=== PATIENT | male | born 1955 | race Caucasian/White ===

== ENCOUNTER 2017-06-07 16:55 | Emergency (ER) | payer BC ==
[2017-06-07 17:11] VITALS: BP 160/109; PULSE 104; O2SAT 97
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
[2017-06-07] MEDS ORDERED: PERCOCET TABLET 5/325MG ONE (17:33)
[2017-06-07] MEDS: PERCOCET TABLET 5/325MG PO STA ×2 (17:34→17:40)
[2017-06-07] MEDS ORDERED: Hydromorphone 1 mg/ml Ampule IM ONE (17:40)
[2017-06-07] MEDS ORDERED: Hydromorphone 1 mg/ml Ampule ONE (17:43)
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
== END 2017-06-07 18:14 | disposition home or self-care (01) ==
LOC: ED 16:55
DX: M48.02 Spinal stenosis, cervical region (principal); M54.2 Cervicalgia; S00.93XA Contusion of unspecified part of head, initial encounter; V48.0XXA Car driver injured in noncollision transport accident in nontraffic accident, initial encounter
CPT/HCPCS: 70450; 72125; 96372; 99284; J1170; L0172; A9270-GY